=== PATIENT | male | born 1965 | race Caucasian/White ===

== ENCOUNTER 2017-01-20 06:52 | Day surgery (SDC) | payer OTHER ==
[~2017-01-20 06:52] MED LIST: CIPRO500 MG PO; GLUCOPHAGE1000 M1 PO; HUMALOG100 UNIT/2 SC; LIPITOR20 M1 PO; NO HOME MEDS; PROTONIX40 M2 PO; TOUJEO SOL300 UNIT/1 SC; TRICOR145 M2 PO; VICTOZA 2-0.6 MG/0.1 SC; VITAMIN D5000 UNI2 PO
[2017-01-20 07:47] LABS: BASO % 0.4 % (0-2); EOS % 1.3 % (0-7); EOSINOPHIL ABSOLUTE COUNT 0.1 tho/cmm (0.0-0.7); HCT-HEMATOCRIT 49.1 % (36.0-53.5); HGB-HEMOGLOBIN 17.2 gm/dl (13.5-17.0); IMMATURE GRANULOCYTES ABSOLUTE 0.04 tho/cmm (0-0.03); IMMATURE GRANULOCYTES PERCENT 0.8 % (0-0.3); LYMPH % 28.3 % (20-45); LYMPH ABSOLUTE COUNT 1.5 tho/cmm (0.8-4.5); MCH (MEAN CORPUSCULAR HGB) 31.3 pg (28.0-32.0); MCV (MEAN CELL VOLUME) 89.3 fl (82.0-96.0); MEAN PLATELET VOLUME 11.4 cmc (9.4-12.4); MONO % 8.1 % (0-12); MONOCYTE ABSOLUTE COUNT 0.4 tho/cmm (0.0-1.2); NEUTROPHIL ABSOLUTE COUNT 3.2 tho/cmm (1.6-8.0); NEUTROPHIL-AUTOMATED 3.2 tho/cmm (1.6-8.0); NEUTROPHILS % 61.1 % (40-80); PLATELET COUNT 212 tho/cmm (150-450); RED CELL DISTRIBUTION WIDTH 12.8 % (12.4-16.4); WHITE BLOOD COUNT 5.2 tho/cmm (4.0-10.0)
[2017-01-20 07:54] LABS: ANION GAP 13 mmol/L (0-20); BLOOD UREA NITROGEN 15 mg/dl (6-24); CALCIUM 9.3 mg/dl (8.5-10.5); CARBON DIOXIDE-VENOUS 29 mmol/L (22-32); CHLORIDE 106 mmol/l (96-110); CREATININE 1.13 mg/dl (0.60-1.30); GLUCOSE 213 mg/dL (70-110); POTASSIUM 5.1 mmol/L (3.7-5.1); SODIUM 143 mmol/L (135-145); eGFR VALUE FOR BLACK 86 mL/Min
== END 2017-01-20 14:05 ==
LOC: SRG 06:52 → SHSC 06:56 → ORW 09:01 → PACU 10:37 → SHSC 11:45
PROVIDERS: Anesthesiology
PROC: 0YU54JZ Supplement Right Inguinal Region with Synthetic Substitute, Percutaneous Endoscopic Approach (ICD-10-PCS; principal; 2017-01-20)
DX: K40.31 Unilateral inguinal hernia, with obstruction, without gangrene, recurrent (principal); I25.10 Atherosclerotic heart disease of native coronary artery without angina pectoris; E66.01 Morbid (severe) obesity due to excess calories; E78.5 Hyperlipidemia, unspecified; E11.9 Type 2 diabetes mellitus without complications; G47.30 Sleep apnea, unspecified; K21.9 Gastro-esophageal reflux disease without esophagitis; Z79.84 Long term (current) use of oral hypoglycemic drugs; Z79.4 Long term (current) use of insulin; Z79.899 Other long term (current) drug therapy; Z88.8 Allergy status to other drugs, medicaments and biological substances; Z90.89 Acquired absence of other organs; Z98.890 Other specified postprocedural states
CPT/HCPCS: C1781; J0690